=== PATIENT | female | born 1975 | race Caucasian/White ===

== ENCOUNTER 2021-05-16 16:07 | Emergency (ER) | payer SELFPAY ==
[2021-05-16 16:49] LABS: #Basophils 0.1 10x3/uL (0.0-0.2); #Eosinphils 0.3 10x3/uL (0.0-0.5); #Monocytes 0.8 10x3/uL (0.0-1.1); #Neutrophils 7.5 10x3/uL (1.5-8.4); %Basophils 0.5 % (0.0-2.0); %Eosinophils 1.8 % (0.0-6.0); %Lymphocytes 36.2 % (18.0-47.0); %Neutrophils 55.1 % (40.0-75.0); Hemoglobin 15.7 g/dL (12.0-15.5); Mean Corpuscular HGB CONC 33.1 g/dL (32.0-36.0); Mean Corpuscular Hemoglobin 28.4 pg (27.0-33.0); Mean Corpuscular Volume 85.9 fl (81.6-98.3); Mean Platelet Volume 9.4 fl (7.4-10.4); Platelet Count 394 10x3/uL (150-450); RBC Distribution Width 13.3 % (11.5-14.5); Red Blood Cell (RBC) Count 5.52 10x6/uL (3.90-5.03); White Blood Cell (WBC) Count 13.6 10x3/uL (3.5-10.5)
[2021-05-16] MEDS ORDERED: Acetaminophen 500 MG TAB ONE (16:59)
[2021-05-16] MEDS ORDERED: Nitroglycerin 0.4 MG TAB 1 EACH ONE (16:59)
[2021-05-16 17:05] LABS: ALT (SGPT) 22 U/L (8-55); AST (SGOT) 17 U/L (5-34); Albumin 4.2 g/dL (3.5-5.0); Alkaline Phosphatase 159 U/L (40-110); Anion Gap 15 mmol/L (10-20); BUN (Urea Nitrogen) 20 mg/dL (7.0-18.7); Bilirubin, Total 0.3 mg/dL (0.2-1.2); Calc. Creatinine Clearance 0 mL/min (70-130); Carbon Dioxide 22 mmol/L (22-29); Chloride 110 mmol/L (98-107); Globulin 2.5 g/dL (2.4-3.5); Glucose 79 mg/dL (70-105); Lipase 18 U/L (8-78); Potassium 4.3 mmol/L (3.5-5.1); Protein, Total 6.7 g/dL (6.0-8.3); Sodium 143 mmol/L (136-145)
[2021-05-16 19:43] LABS: Troponin I Less than 0.010 ng/mL (< 0.028)
[2021-05-17] MEDS ORDERED: Aspirin Chewable 81 MG TAB PO SCH (09:00)
== END 2021-05-16 19:57 | disposition left against medical advice (07) ==
LOC: CSHERS 16:07
DX: R07.9 Chest pain, unspecified (principal); I10 Essential (primary) hypertension; Z79.899 Other long term (current) drug therapy; Z86.73 Personal history of transient ischemic attack (TIA), and cerebral infarction without residual deficits; F17.210 Nicotine dependence, cigarettes, uncomplicated
CPT/HCPCS: 71045; 80053; 83690; 84484; 85025; 93005

== ENCOUNTER 2021-06-23 15:46 | Emergency (ER) | payer SELFPAY ==
[2021-06-23] MEDS ORDERED: Ibuprofen 200 MG TAB ONE (18:30)
[2021-06-23] MEDS ORDERED: Acetaminophen 500 MG TAB ONE (18:30)
[2021-06-23] MEDS ORDERED: guaiFENesin/Dextromethorphan 10 ML UDCUP PO SCH (20:00)
[2021-06-23 21:28] LABS: #Eosinphils 0.1 10x3/uL (0.0-0.5); #Monocytes 1.1 10x3/uL (0.0-1.1); #Neutrophils 7.3 10x3/uL (1.5-8.4); %Basophils 0.4 % (0.0-2.0); %Eosinophils 0.7 % (0.0-6.0); %Lymphocytes 4.4 % (18.0-47.0); %Monocytes 12.2 % (0.0-10.0); %Neutrophils 81.5 % (40.0-75.0); Hemoglobin 14.4 g/dL (12.0-15.5); Mean Corpuscular HGB CONC 33.9 g/dL (32.0-36.0); Mean Corpuscular Hemoglobin 28.3 pg (27.0-33.0); Mean Corpuscular Volume 83.5 fl (81.6-98.3); Mean Platelet Volume 9.4 fl (7.4-10.4); Platelet Count 271 10x3/uL (150-450); RBC Distribution Width 13.2 % (11.5-14.5); Red Blood Cell (RBC) Count 5.09 10x6/uL (3.90-5.03)
[2021-06-23 21:36] LABS: ALT (SGPT) 25 U/L (8-55); AST (SGOT) 19 U/L (5-34); Albumin 3.4 g/dL (3.5-5.0); Alkaline Phosphatase 163 U/L (40-110); Anion Gap 16 mmol/L (10-20); BUN (Urea Nitrogen) 23 mg/dL (7.0-18.7); Bilirubin, Total 0.2 mg/dL (0.2-1.2); Calc. Creatinine Clearance 0 mL/min (70-130); Calcium 8.3 mg/dL (7.8-10.44); Carbon Dioxide 21 mmol/L (22-29); Chloride 104 mmol/L (98-107); Globulin 2.8 g/dL (2.4-3.5); Glucose 118 mg/dL (70-105); Potassium 3.2 mmol/L (3.5-5.1); Protein, Total 6.2 g/dL (6.0-8.3); Sodium 138 mmol/L (136-145)
[2021-06-23 22:19] LABS: Bilirubin Neg (Negative); Blood, Urine 150 (Negative); Clarity Clear (Clear); Glucose, Urine (Dipstick) Normal (Negative); Ketone, Urine Negative (Negative); Leukocyte Negative (Negative); Nitrite Negative (Negative); Protein, Urine (Dipstick) 500 mg/dl (Neg-Trace); Specific Gravity, Urine 1.015 (1.002-1.036); Urobilinogen Normal mg/dL (Less than 2)
[2021-06-23 22:23] LABS: Bacteria/HPF 3+ HPF (None Seen)
[2021-06-23] MEDS ORDERED: Potassium Chloride 20 MEQ TAB ONE (22:42)
[2021-06-24 15:55] LABS: SARS-CoV-2 PCR by NAA DETECTED (NotDetected)
== END 2021-06-23 23:07 | disposition home or self-care (01) ==
LOC: CSHERS 15:46
DX: U07.1 COVID-19 (principal); E86.0 Dehydration; I95.9 Hypotension, unspecified; I10 Essential (primary) hypertension; F17.210 Nicotine dependence, cigarettes, uncomplicated; Z79.899 Other long term (current) drug therapy
CPT/HCPCS: 36415; 71045; 80053; 81003; 81015; 83605; 84484; 85025; 87040; 87804; 93005; U0003; U0005

== ENCOUNTER 2021-08-08 16:31 | Emergency (ER) | payer SELFPAY | END 2021-08-08 18:39 | disposition home or self-care (01) | LOC: CSHERS 16:31 | DX: S69.82XA Other specified injuries of left wrist, hand and finger(s), initial encounter (principal); I10 Essential (primary) hypertension; F17.210 Nicotine dependence, cigarettes, uncomplicated; X58.XXXA Exposure to other specified factors, initial encounter ==

== ENCOUNTER 2021-12-30 15:56 | Emergency (ER) | payer OTHER ==
[2021-12-30 16:46] LABS: #Basophils 0.1 10x3/uL (0.0-0.2); #Eosinphils 0.4 10x3/uL (0.0-0.5); #Monocytes 0.5 10x3/uL (0.0-1.1); %Basophils 0.5 % (0.0-2.0); %Eosinophils 3.1 % (0.0-6.0); %Lymphocytes 31.3 % (18.0-47.0); %Monocytes 4.6 % (0.0-10.0); %Neutrophils 60.2 % (40.0-75.0); Hemoglobin 15.3 g/dL (12.0-15.5); Mean Corpuscular HGB CONC 33.6 g/dL (32.0-36.0); Mean Corpuscular Hemoglobin 28.1 pg (27.0-33.0); Mean Corpuscular Volume 83.8 fl (81.6-98.3); Mean Platelet Volume 9.2 fl (7.4-10.4); Platelet Count 368 10x3/uL (150-450); RBC Distribution Width 13.2 % (11.5-14.5); Red Blood Cell (RBC) Count 5.44 10x6/uL (3.90-5.03); White Blood Cell (WBC) Count 11.7 10x3/uL (3.5-10.5)
[2021-12-30 16:54] LABS: INR-International Normal Ratio 0.9; PTT 26.9 sec (22.0-33.0); Prothrombin Time 9.8 sec (9.5-12.1)
[2021-12-30 16:59] LABS: ALT (SGPT) 16 U/L (8-55); AST (SGOT) 15 U/L (5-34); Albumin 3.6 g/dL (3.5-5.0); Alkaline Phosphatase 188 U/L (40-110); Anion Gap 15 mmol/L (10-20); BUN (Urea Nitrogen) 27 mg/dL (7.0-18.7); Bilirubin, Total 0.3 mg/dL (0.2-1.2); CK (CPK) 99 U/L (29-168); Calc. Creatinine Clearance 0 mL/min (70-130); Calcium 8.6 mg/dL (7.8-10.44); Carbon Dioxide 20 mmol/L (22-29); Chloride 106 mmol/L (98-107); Estimated GFR 54; Globulin 2.8 g/dL (2.4-3.5); Glucose 106 mg/dL (70-105); Potassium 4.1 mmol/L (3.5-5.1); Protein, Total 6.4 g/dL (6.0-8.3); Sodium 137 mmol/L (136-145)
[2021-12-30] MEDS ORDERED: Acetaminophen 500 MG TAB ONE (17:53)
== END 2021-12-30 18:40 | disposition home or self-care (01) ==
LOC: CSHERS 15:56
DX: G45.9 Transient cerebral ischemic attack, unspecified (principal); I10 Essential (primary) hypertension; F17.210 Nicotine dependence, cigarettes, uncomplicated
CPT/HCPCS: 36415; 70450; 71045; 80053; 82550; 84484; 85025; 85610; 85730; 93005

== ENCOUNTER 2022-03-06 13:11 | Emergency (ER) | payer SELFPAY ==
[2022-03-06 13:44] LABS: #Basophils 0.1 10x3/uL (0.0-0.2); #Eosinphils 0.6 10x3/uL (0.0-0.5); #Monocytes 0.8 10x3/uL (0.0-1.1); #Neutrophils 9.2 10x3/uL (1.5-8.4); %Basophils 0.7 % (0.0-2.0); %Eosinophils 3.8 % (0.0-6.0); %Lymphocytes 28.5 % (18.0-47.0); %Monocytes 5.6 % (0.0-10.0); Hemoglobin 15.8 g/dL (12.0-15.5); Mean Corpuscular HGB CONC 33.8 g/dL (32.0-36.0); Mean Corpuscular Hemoglobin 28.2 pg (27.0-33.0); Mean Corpuscular Volume 83.6 fl (81.6-98.3); Mean Platelet Volume 8.8 fl (7.4-10.4); Platelet Count 392 10x3/uL (150-450); RBC Distribution Width 14.4 % (11.5-14.5); White Blood Cell (WBC) Count 15.1 10x3/uL (3.5-10.5)
[2022-03-06 13:57] LABS: ALT (SGPT) 24 U/L (8-55); AST (SGOT) 20 U/L (5-34); Alkaline Phosphatase 214 U/L (40-110); Anion Gap 13 mmol/L (10-20); BUN (Urea Nitrogen) 30 mg/dL (7.0-18.7); Bilirubin, Total 0.2 mg/dL (0.2-1.2); Calc. Creatinine Clearance 0 mL/min (70-130); Calcium 8.9 mg/dL (7.8-10.44); Carbon Dioxide 23 mmol/L (22-29); Chloride 108 mmol/L (98-107); Estimated GFR 63; Globulin 2.5 g/dL (2.4-3.5); Glucose 104 mg/dL (70-105); Lipase 33 U/L (8-78); Potassium 4.7 mmol/L (3.5-5.1); Protein, Total 6.5 g/dL (6.0-8.3); Sodium 139 mmol/L (136-145)
[2022-03-06] MEDS ORDERED: Ketorolac Tromethamine 30 MG/ML VIAL ONE (16:37)
== END 2022-03-06 16:43 | disposition home or self-care (01) ==
LOC: CSHERS 13:11
DX: R07.89 Other chest pain (principal); R51.9 Headache, unspecified; F17.210 Nicotine dependence, cigarettes, uncomplicated; I10 Essential (primary) hypertension
CPT/HCPCS: 71045; 80053; 83690; 84484; 85025; 93005; 96372; J1885

== ENCOUNTER 2022-04-01 19:10 | Emergency (ER) | payer SELFPAY ==
[2022-04-01] MEDS ORDERED: Ondansetron ODT 4 MG TAB ONE (20:05)
== END 2022-04-01 20:49 | disposition home or self-care (01) ==
LOC: CSHERS 19:10
DX: R11.2 Nausea with vomiting, unspecified (principal); R19.7 Diarrhea, unspecified; I10 Essential (primary) hypertension; F17.210 Nicotine dependence, cigarettes, uncomplicated; Z79.899 Other long term (current) drug therapy
CPT/HCPCS: 99283; Q0162

== ENCOUNTER 2022-07-25 20:15 | Emergency (ER) | payer SELFPAY ==
[2022-07-25] MEDS ORDERED: Ketorolac Tromethamine 30 MG/ML VIAL ONE (20:47)
== END 2022-07-25 21:11 | disposition home or self-care (01) ==
LOC: CSHERS 20:15
DX: I10 Essential (primary) hypertension (principal); R51.9 Headache, unspecified; F17.210 Nicotine dependence, cigarettes, uncomplicated
CPT/HCPCS: 96372; 99283; J1885

== ENCOUNTER 2022-07-30 16:01 | Emergency (ER) | payer SELFPAY ==
[2022-07-30 17:16] LABS: SARS-CoV-2 NAA Rapid Test Not Detected (NotDetected)
== END 2022-07-30 20:03 | disposition home or self-care (01) ==
LOC: CSHERS 16:01
DX: R05.9 Cough, unspecified (principal); Z20.822 Contact with and (suspected) exposure to COVID-19; I10 Essential (primary) hypertension
CPT/HCPCS: 99283

== ENCOUNTER 2023-05-03 07:41 | Emergency (ER) | payer OTHER, SELFPAY ==
[2023-05-03 09:21] LABS: SARS-CoV-2 NAA Rapid Test Not Detected (NotDetected)
== END 2023-05-03 09:41 | disposition home or self-care (01) ==
LOC: CSHERS 07:41
DX: J06.9 Acute upper respiratory infection, unspecified (principal); I10 Essential (primary) hypertension; Z20.822 Contact with and (suspected) exposure to COVID-19
CPT/HCPCS: 71045

== ENCOUNTER 2023-09-02 09:13 | Inpatient (IN) | payer OTHER ==
[2023-09-02] MEDS ORDERED: Aspirin Chewable 81 MG TAB ONE (09:54)
[2023-09-02 10:07] LABS: #Basophils 0.1 10x3/uL (0.0-0.2); #Eosinphils 0.4 10x3/uL (0.0-0.5); #Monocytes 0.7 10x3/uL (0.0-1.1); #Neutrophils 9.4 10x3/uL (1.5-8.4); %Basophils 0.4 % (0.0-2.0); %Eosinophils 3.1 % (0.0-6.0); %Lymphocytes 21.2 % (18.0-47.0); %Monocytes 4.9 % (0.0-10.0); %Neutrophils 69.6 % (40.0-75.0); Hematocrit 43.9 % (34.9-44.5); Hemoglobin 14.5 g/dL (12.0-15.5); Mean Corpuscular Hemoglobin 28.4 pg (27.0-33.0); Mean Corpuscular Volume 85.9 fl (81.6-98.3); Mean Platelet Volume 8.8 fl (7.4-10.4); Platelet Count 373 10x3/uL (150-450); RBC Distribution Width 14.6 % (11.5-14.5); Red Blood Cell (RBC) Count 5.11 10x6/uL (3.90-5.03); White Blood Cell (WBC) Count 13.5 10x3/uL (3.5-10.5)
[2023-09-02 10:19] LABS: ALT (SGPT) 22 U/L (8-55); AST (SGOT) 21 U/L (5-34); Albumin 3.7 g/dL (3.5-5.0); Alkaline Phosphatase 173 U/L (40-110); Anion Gap 13 mmol/L (10-20); BUN (Urea Nitrogen) 31 mg/dL (7.0-18.7); Bilirubin, Total 0.2 mg/dL (0.2-1.2); Calc. Creatinine Clearance 0 mL/min (70-130); Calcium 8.8 mg/dL (7.8-10.44); Carbon Dioxide 23 mmol/L (22-29); Chloride 110 mmol/L (98-107); Estimated GFR 48; Globulin 2.5 g/dL (2.4-3.5); Glucose 124 mg/dL (70-105); Lipase 49 U/L (8-78); Magnesium 1.9 mg/dL (1.6-2.6); Potassium 4.2 mmol/L (3.5-5.1); Protein, Total 6.2 g/dL (6.0-8.3); Sodium 142 mmol/L (136-145)
[2023-09-02 10:25] LABS: Troponin I Less than 0.010 ng/mL (< 0.028)
[2023-09-02] MEDS ORDERED: Morphine 4 MG/ML VIAL ONE (12:02)
[2023-09-02 12:07] LABS: Troponin I Less than 0.010 ng/mL (< 0.028)
[2023-09-02] MEDS ORDERED: Acetaminophen 325 MG TAB PO PRN (12:51)
[2023-09-02] MEDS ORDERED: Morphine 2 MG/ML VIAL SLOW IVP PRN (12:51)
[2023-09-02] MEDS ORDERED: Acetaminophen 650 MG Suppository PR PRN (12:51)
[2023-09-02 13:18] VITALS: BMI 40.1
[2023-09-02] MEDS: Atorvastatin Calcium 40 MG TAB PO SCH (14:09)
[2023-09-02] MEDS: Enoxaparin 100 MG (1 mL) SYRINGE SC SCH (14:11)
[2023-09-02] MEDS: Nicotine 21 MG PATCH TD SCH (14:11)
[2023-09-02 15:39] LABS: Troponin I Less than 0.010 ng/mL (< 0.028)
[2023-09-02] MEDS: Morphine 4 MG/ML VIAL SLOW IVP PRN (16:51)
[2023-09-02] MEDS: Sodium Chloride 0.9% 1,000 ML IV SCH (17:16)
[2023-09-02 19:19] LABS: Troponin I Less than 0.010 ng/mL (< 0.028)
[2023-09-02] MEDS: lamoTRIgine 100 MG TAB PO SCH ×3 (21:42→23:05)
[2023-09-02] MEDS: hydrOXYzine 25 MG TAB PO PRN (21:42)
[2023-09-03 05:38] LABS: ALT (SGPT) 20 U/L (8-55); AST (SGOT) 15 U/L (5-34); Albumin 3.6 g/dL (3.5-5.0); Alkaline Phosphatase 171 U/L (40-110); Anion Gap 14 mmol/L (10-20); BUN (Urea Nitrogen) 25 mg/dL (7.0-18.7); Bilirubin, Total 0.2 mg/dL (0.2-1.2); Calc. Creatinine Clearance 96 mL/min (70-130); Calcium 8.3 mg/dL (7.8-10.44); Carbon Dioxide 22 mmol/L (22-29); Chloride 110 mmol/L (98-107); Estimated GFR 56; Globulin 2.6 g/dL (2.4-3.5); Glucose 98 mg/dL (70-105); Potassium 4.2 mmol/L (3.5-5.1); Protein, Total 6.2 g/dL (6.0-8.3); Sodium 142 mmol/L (136-145)
[2023-09-03] MEDS: Sertraline 100 MG TAB PO SCH (08:46)
[2023-09-03] MEDS: Aspirin 81 mg Enteric Coated Tablet PO SCH (08:46)
[2023-09-03] MEDS: Enoxaparin 40 MG (0.4 mL) SYRINGE SC SCH (08:47)
[2023-09-03] MEDS ORDERED: lamoTRIgine 100 MG TAB PO SCH ×2 (09:00→21:00)
[2023-09-03 09:02] VITALS: BP 186/85; TEMP 97.4
[2023-09-03] MEDS ORDERED: Atorvastatin Calcium 40 MG TAB PO SCH (21:00)
== END 2023-09-03 09:19 | disposition home or self-care (01) | DRG 313 ==
LOC: CSHERS 09:13 → SUATTDRO 09:13 → CSHTELE 13:06
PROVIDERS: ADMIT Family Medicine; ATTEND Family Medicine
DX: R07.89 Other chest pain (principal); I20.0 Unstable angina; F31.9 Bipolar disorder, unspecified; E78.5 Hyperlipidemia, unspecified; I10 Essential (primary) hypertension; F17.210 Nicotine dependence, cigarettes, uncomplicated; G43.909 Migraine, unspecified, not intractable, without status migrainosus; F41.9 Anxiety disorder, unspecified; Z91.040 Latex allergy status; Z88.8 Allergy status to other drugs, medicaments and biological substances; Z86.73 Personal history of transient ischemic attack (TIA), and cerebral infarction without residual deficits; Z88.6 Allergy status to analgesic agent; Z90.710 Acquired absence of both cervix and uterus; Z82.49 Family history of ischemic heart disease and other diseases of the circulatory system
CPT/HCPCS: 36415; 71045; 80053; 83690; 83735; 83880; 84484; 85025; 93005; 93306; 94760; 94762; 96374; J1650; J2270; J7050

== ENCOUNTER 2024-04-24 09:05 | Emergency (ER) | payer SELFPAY ==
[2024-04-24] MEDS ORDERED: Ondansetron PF 4 MG/2 ML Vial ONE (09:54)
[2024-04-24] MEDS ORDERED: Ketorolac Tromethamine 30 MG (1 mL) VIAL ONE (09:55)
[2024-04-24 10:08] LABS: #Basophils 0.05 10x3/uL (0.0-0.2); #Monocytes 0.92 10x3/uL (0.0-1.1); #Neutrophils 10.85 10x3/uL (1.5-8.4); %Basophils 0.3 % (0.0-2.0); %Eosinophils 1.4 % (0.0-6.0); %Lymphocytes 17.8 % (18.0-47.0); %Monocytes 6.3 % (0.0-10.0); %Neutrophils 73.7 % (40.0-75.0); Hematocrit 45.3 % (34.9-44.5); Hemoglobin 14.8 g/dL (12.0-15.5); Mean Corpuscular HGB CONC 32.7 g/dL (32.0-36.0); Mean Corpuscular Hemoglobin 28.4 pg (27.0-33.0); Mean Corpuscular Volume 86.9 fL (81.6-98.3); Mean Platelet Volume 8.8 fL (7.4-10.4); Platelet Count 348 10x3/uL (150-450); RBC Distribution Width 13.1 % (11.5-14.5); Red Blood Cell (RBC) Count 5.21 10x6/uL (3.90-5.03); White Blood Cell (WBC) Count 14.7 10x3/uL (3.5-10.5)
[2024-04-24 10:17] LABS: BHCG - Serum POSITIVE (NEGATIVE); Pregs Control Background? CLEAR/WHITE (CLR/WHITE); Pregs Control Bar Appear? YES (CONTROL BAR)
[2024-04-24 10:22] LABS: ALT (SGPT) 18 U/L (8-55); AST (SGOT) 13 U/L (5-34); Albumin 3.4 g/dL (3.5-5.0); Alkaline Phosphatase 173 U/L (40-110); Anion Gap 14 mmol/L (10-20); BUN (Urea Nitrogen) 32 mg/dL (7.0-18.7); Bilirubin, Total 0.2 mg/dL (0.2-1.2); Calc. Creatinine Clearance 0 mL/min (70-130); Calcium 9.2 mg/dL (7.8-10.44); Carbon Dioxide 20 mmol/L (22-29); Chloride 109 mmol/L (98-107); Estimated GFR 39; Globulin 3.5 g/dL (2.4-3.5); Glucose 108 mg/dL (70-105); Potassium 4.1 mmol/L (3.5-5.1); Protein, Total 6.9 g/dL (6.0-8.3); Sodium 139 mmol/L (136-145)
[2024-04-24 12:17] LABS: Bilirubin Neg (Negative); Blood, Urine 10 (Negative); Clarity Clear (Clear); Glucose, Urine (Dipstick) Normal (Negative); Ketone, Urine Negative (Negative); Leukocyte Negative (Negative); Nitrite Negative (Negative); Protein, Urine (Dipstick) 500 mg/dl (Neg-Trace); Urobilinogen Normal mg/dL (Less than 2)
[2024-04-24 12:28] LABS: Bacteria/HPF 1+ HPF (None Seen); CAUTI Indications for Culture Pelvic or flank pain; RBC/HPF 0-3 HPF (0-3); Squamous Epithelial 0-3 HPF (0-3); WBC/HPF 0-3 HPF (0-3)
[2024-04-24 12:29] LABS: Urine Culture Reflex No No
== END 2024-04-24 13:03 | disposition home or self-care (01) ==
LOC: CSHERS 09:05
DX: O99.350 Diseases of the nervous system complicating pregnancy, unspecified trimester (principal); G43.909 Migraine, unspecified, not intractable, without status migrainosus; O99.280 Endocrine, nutritional and metabolic diseases complicating pregnancy, unspecified trimester; E86.0 Dehydration; O26.839 Pregnancy related renal disease, unspecified trimester; N17.9 Acute kidney failure, unspecified; O99.330 Smoking (tobacco) complicating pregnancy, unspecified trimester; F17.210 Nicotine dependence, cigarettes, uncomplicated; I10 Essential (primary) hypertension; Z3A.00 Weeks of gestation of pregnancy not specified
CPT/HCPCS: 36415; 80053; 81001; 83605; 83735; 84702; 84703; 85025; 87428; 96374; 96375; J1885; J2405

== ENCOUNTER 2025-06-03 17:44 | Emergency (ER) | payer SELFPAY ==
[2025-06-03] MEDS ORDERED: Dexamethasone 10 MG/ML VIAL ONE (18:49)
[2025-06-03] MEDS ORDERED: cefTRIAXone (ROCEPHIN) 1 GM VIAL ONE (18:49)
== END 2025-06-03 19:02 | disposition home or self-care (01) ==
LOC: CSHERS 17:44
DX: R06.2 Wheezing (principal); R05.1 Acute cough; I10 Essential (primary) hypertension; F17.210 Nicotine dependence, cigarettes, uncomplicated; Z86.73 Personal history of transient ischemic attack (TIA), and cerebral infarction without residual deficits
CPT/HCPCS: 71045; 96372; J0696; J1100